=== PATIENT | male | born 1960 | race Caucasian/White ===

== ENCOUNTER → 2017-06-28 | Outpatient (CLI) | payer OTHER ==
[~2017-06-28] VITALS: Ht 167.6 cm; Wt 79.4 kg
[~2017-06-28] MED LIST: CALCIUM + D3 E1 EACH PO; CENTRUM SILVER1 EAC5 PO; CRANBERRY TABL1 EACH PO; OMEGA-3 FISH O1 EAC3 PO; PROTONIX40 MG PO; SAW PALMETTO500 MG PO; VITAMIN C250 MG PO; [UNRECOGNIZED DRUG - OTHER] TP
== END | disposition home or self-care (01) ==
LOC: AMB 08:40
DX: Z12.11 Encounter for screening for malignant neoplasm of colon (principal); D12.2 Benign neoplasm of ascending colon; D12.3 Benign neoplasm of transverse colon; D12.4 Benign neoplasm of descending colon; K64.8 Other hemorrhoids; K63.3 Ulcer of intestine; K21.9 Gastro-esophageal reflux disease without esophagitis; Z80.49 Family history of malignant neoplasm of other genital organs; Z80.42 Family history of malignant neoplasm of prostate; Z87.891 Personal history of nicotine dependence
CPT/HCPCS: 88305